=== PATIENT | female | born 1980 | race African-American/Black ===

== ENCOUNTER 2019-10-09 07:09 | Inpatient (IN) ==
[2019-10-09] MEDS ORDERED: fentaNYL 100 MCG/2 ML VIAL ONE (07:37)
[2019-10-09] MEDS ORDERED: ONDANSETRON 4 MG/2 ML VIAL ONE (07:37)
[2019-10-09] MEDS ORDERED: DEXAMETHASONE 4 MG/1 ML VIAL ONE (07:37)
[2019-10-09] MEDS ORDERED: MORPHINE 10 MG/10 ML VIAL ONE (07:37)
[2019-10-09] MEDS ORDERED: BUPIVACAINE MPF 0.5% /EPI 30 ML VIAL ONE (07:37)
[2019-10-09] MEDS ORDERED: LACTATED RINGERS 1,000 ML IV ONE (07:38)
[2019-10-09] MEDS ORDERED: PHENYLEPHRINE 1 MG/10 ML SYRINGE IV ONE (07:38)
[2019-10-09] MEDS ORDERED: CLINDAMYCIN INJ 900 MG in PREMIX 1 EACH IV ONE (07:45)
[2019-10-09] MEDS ORDERED: CITRIC ACID/SODIUM CITRATE 30 ML UDCUP PO ONE (07:45)
[2019-10-09] MEDS ORDERED: FAMOTIDINE 20 MG/2 ML VIAL IV ONE (07:45)
[2019-10-09] MEDS ORDERED: OXYTOCIN 10 UNIT/ML VIAL IM ONE (07:58)
[2019-10-09] MEDS ORDERED: OXYTOCIN/LR 30 UNIT/1,000 ML BAG IV ONE (07:58)
[2019-10-09] MEDS ORDERED: LACTATED RINGERS 1,000 ML IV SCH ×2 (08:00→10:00)
[2019-10-09 08:04] LABS: Basophils % 0.6 % (0.0-0.8); Eosinophils % 0.4 % (0.00-10.9); Hematocrit 35.7 VOL% (35.7-47.0); Hemoglobin 11.7 GM/DL (12.0-16.0); Immature Granulocytes % 0.6 %; Immature Granulocytes Absolute 0.03 #; Lymphocytes # 1.7 10*3/uL (1.4-4.0); Lymphocytes % 31.6 % (21.3-54.2); Mean Corpuscular HGB Conc 32.8 GM/DL (32-36); Mean Corpuscular Volume 83.2 FL (87-102); Mean Platelet Volume 8.9 FL (9.6-12.0); Monocytes % 8.3 % (1.7-12.7); Neutrophils % 58.5 % (38.7-73.9); Platelet Count 282 T/CUMM (130-400); Red Blood Count 4.29 MC/CUMM (3.8-5.5); Red Cell Distribution Width 15.5 % (9.3-17.3); White Blood Count 5.3 T/CUMM (4-12)
[2019-10-09 08:34] LABS: Alanine Aminotransferase 21 U/L (13-56); Albumin 2.9 G/DL (3.4-5.0); Alkaline Phosphatase 86 U/L (45-117); Aspartate Amino Transferase 18 U/L (0-37); Bilirubin,Total < 0.39 MG/DL (0.2-1.0); Blood Urea Nitrogen 8 MG/DL (7-18); Calcium 8.8 MG/DL (8.5-10.1); Estimated Glom Filtration Rate 146 ML/MIN; Glucose 82 MG/DL (74-106); Osmolality,Calculated 269.8 MOS/KG (273-304)
[2019-10-09 09:33] LABS: Cord Arterial Blood HCO3 24.9 MMOL/L
[2019-10-09 09:36] LABS: Cord Venous Blood PCO2 46.5 MMHG
[2019-10-09 09:41] LABS: Apearance,Urine CLEAR (Clear); Bilirubin,Urine Negative (Negative); Blood, Urine Negative (Negative); Glucose,Urine (UA) Negative (Negative); Ketones,Urine 5 mg/dL (Negative); Mucus,Urine Few /LPF (Occasional); Nitrite,Urine Negative (Negative); Protein,Urine 30 MG/DL; RBC,Urine 4 /HPF (0-4); Squamous Epithelial Cell,Urine Occasional /HPF (0-10); Urine Color Yellow (Yellow); Urine Specific Gravity 1.025 (1.001-1.035); Urine Urobilinogen < 2.0 EU/DL (0.2-1.0); WBC,Urine 1 /HPF (0-6)
[2019-10-09] MEDS ORDERED: MAGNESIUM HYDROXIDE SUSP 30 ML UDCUP PO PRN (09:45)
[2019-10-09] MEDS ORDERED: SIMETHICONE CHEW 80 MG TABLET PO PRN (09:45)
[2019-10-09] MEDS ORDERED: ONDANSETRON 4 MG/2 ML VIAL IV PRN (09:45)
[2019-10-09] MEDS ORDERED: OXYTOCIN/LR 20 UNIT/1,000 ML BAG IV ONE (09:45)
[2019-10-09] MEDS ORDERED: ACETAMINOPHEN 325 MG TABLET PO PRN (09:45)
[2019-10-09] MEDS ORDERED: RHO(D) IMMUNE GLOBULIN 300 MCG SYRINGE IM ONE (09:45)
[2019-10-09] MEDS ORDERED: ceFAZolin 1,000 MG in SYRINGE 1 EACH IV SCH (10:00)
[2019-10-09] MEDS ORDERED: KETOROLAC 30 MG/1 ML VIAL ONE (10:34)
[2019-10-09] MEDS ORDERED: SODIUM CHLORIDE 0.9% 100 ML IV ONE (10:34)
[2019-10-09] MEDS: CLINDAMYCIN INJ 900 MG in PREMIX 1 EACH IV SCH (17:15)
[2019-10-09 18:03] LABS: Basophils % 0.2 % (0.0-0.8); Hematocrit 33.1 VOL% (35.7-47.0); Immature Granulocytes % 0.6 %; Immature Granulocytes Absolute 0.07 #; Lymphocytes # 0.8 10*3/uL (1.4-4.0); Lymphocytes % 7.1 % (21.3-54.2); Mean Corpuscular HGB Conc 33.2 GM/DL (32-36); Mean Corpuscular Volume 83.2 FL (87-102); Mean Platelet Volume 9.1 FL (9.6-12.0); Monocytes % 3.9 % (1.7-12.7); Neutrophils % 88.2 % (38.7-73.9); Platelet Count 269 T/CUMM (130-400); Red Blood Count 3.98 MC/CUMM (3.8-5.5); Red Cell Distribution Width 15.2 % (9.3-17.3); White Blood Count 11.1 T/CUMM (4-12)
[2019-10-09] MEDS ORDERED: diphenhydrAMINE 50 MG/1 ML VIAL IV PRN (20:33)
[2019-10-09] MEDS: DOCUSATE SODIUM 100 MG CAPSULE PO SCH (20:33)
[2019-10-09] MEDS ORDERED: hydrOXYzine HCL 25 MG/1 ML VIAL IM PRN (22:32)
[2019-10-09] MEDS ORDERED: diphenhydrAMINE 2% CREAM 28 GM TUBE TOP PRN (22:33)
[2019-10-10] MEDS: CLINDAMYCIN INJ 900 MG in PREMIX 1 EACH IV SCH (01:06)
[2019-10-10 04:33] LABS: Basophils % 0.2 % (0.0-0.8); Hematocrit 28.7 VOL% (35.7-47.0); Hemoglobin 9.3 GM/DL (12.0-16.0); Immature Granulocytes % 0.4 %; Immature Granulocytes Absolute 0.04 #; Lymphocytes # 1.8 10*3/uL (1.4-4.0); Lymphocytes % 17.7 % (21.3-54.2); Mean Corpuscular HGB Conc 32.4 GM/DL (32-36); Mean Corpuscular Volume 82.2 FL (87-102); Mean Platelet Volume 8.9 FL (9.6-12.0); Monocytes % 9.1 % (1.7-12.7); Neutrophils % 72.6 % (38.7-73.9); Platelet Count 231 T/CUMM (130-400); Red Blood Count 3.49 MC/CUMM (3.8-5.5); Red Cell Distribution Width 15.4 % (9.3-17.3); White Blood Count 10.4 T/CUMM (4-12)
[2019-10-10] MEDS: IBUPROFEN 800 MG TABLET PO PRN ×2 (05:24→19:33)
[2019-10-10] MEDS ORDERED: MEPERIDINE 50 MG/1 ML VIAL IV PRN (07:32)
[2019-10-10] MEDS: DOCUSATE SODIUM 100 MG CAPSULE PO SCH ×2 (08:44→21:04)
[2019-10-10] MEDS: METOCLOPRAMIDE 10 MG TABLET PO SCH ×3 (08:44→23:18)
[2019-10-10] MEDS: MAGNESIUM HYDROXIDE SUSP 30 ML UDCUP PO SCH (08:45)
[2019-10-10] MEDS: FERROUS SULFATE 325 MG TABLET PO SCH (08:45)
[2019-10-10] MEDS: MULTIVITAMIN (PRENATAL) TABLET PO SCH (08:45)
[2019-10-10] MEDS ORDERED: diphenhydrAMINE CAP 25 MG CAPSULE PO PRN (08:46)
[2019-10-10] MEDS ORDERED: MAGNESIUM CITRATE 300 ML BOTTLE PO ONE (16:07)
[2019-10-11] MEDS: DOCUSATE SODIUM 100 MG CAPSULE PO SCH (07:11)
[2019-10-11 07:22] VITALS: BP 120/85
[2019-10-11] MEDS: MAGNESIUM HYDROXIDE SUSP 30 ML UDCUP PO SCH (09:05)
[2019-10-11] MEDS: METOCLOPRAMIDE 10 MG TABLET PO SCH (09:06)
[2019-10-11] MEDS: MULTIVITAMIN (PRENATAL) TABLET PO SCH (09:06)
[2019-10-11] MEDS: FERROUS SULFATE 325 MG TABLET PO SCH (09:15)
[2019-10-11] MEDS: IBUPROFEN 800 MG TABLET PO PRN (11:42)
== END 2019-10-11 12:35 | disposition home or self-care (01) | DRG 788 ==
LOC: N.LD 07:09 → N.OB 13:29
PROVIDERS: ADMIT Obstetrics & Gynecology; ATTEND Obstetrics & Gynecology
PROC: LDCSECT (ICD-10-PCS; 2019-10-09 08:45)